=== PATIENT | female | born 1990 | race Caucasian/White ===

== ENCOUNTER 2017-11-13 11:57 | Emergency (ER) | payer OTHER ==
[~2017-11-13] VITALS: Ht 149.9 cm; Wt 79.0 kg
[~2017-11-13 11:57] MED LIST: CITA20TA5 PO
[2017-11-13] MEDS ORDERED: ONDANSETRON ODT 4 MG ONE (12:38)
[2017-11-13] MEDS ORDERED: KETOROLAC 30 MG/1 ML ONE (12:38)
[2017-11-13 12:52] LABS: MICROSCOPIC INDICATED
[2017-11-13 12:53] LABS: CULTURE INDICATED? YES
[2017-11-13 12:53] LABS: BASOPHILS # (AUTO) 0.29 x10^3/uL (0-0.1); BASOPHILS % (AUTO) 2 % (0-1); EOSINOPHILS # (AUTO) 0.29 x10^3/uL (0-0.4); EOSINOPHILS % (AUTO) 2 % (1-7); LYMPHOCYTES % (AUTO) 28 % (22-44); MD NO; MEAN CORPUSCULAR HEMOGLOBIN 29.6 pg (27.0-34.8); MEAN CORPUSCULAR HGB CONC 34.3 g/dL (32.4-35.8); MEAN CORPUSCULAR VOLUME 86.4 fL (80-100); MEAN PLATELET VOLUME 8.4 fL (7.4-10.4); MONOCYTES # (AUTO) 0.66 x10^3/uL (0.2-0.8); MONOCYTES % (AUTO) 4 % (2-9); NEUTROPHILS # (AUTO) 9.89 x10^3/uL (1.8-6.8); NEUTROPHILS % (AUTO) 64 % (42-75); PLATELET COUNT 332 x10^3/uL (130-400); RED BLOOD COUNT 5.03 x10^6/uL (3.82-5.3)
[2017-11-13] MEDS ORDERED: KETOROLAC 30 MG/1 ML IVPush ONE (13:00)
[2017-11-13] MEDS ORDERED: ONDANSETRON ODT 4 MG PO ONE (13:00)
[2017-11-13] MEDS ORDERED: KETOROLAC 30 MG/1 ML IM ONE (13:00)
[2017-11-13] MEDS ORDERED: SODIUM CHLORIDE FLUSH 10ML SYR IVF ONE (13:00)
[2017-11-13 13:04] LABS: ALANINE AMINOTRANSFERASE 21 U/L (12-78); ALBUMIN 3.3 g/dL (3.4-5.0); ANION GAP 8 mmol/L (5-15); CALCIUM 8.3 mg/dL (8.5-10.1); CHLORIDE 114 mmol/L (98-107); CREATININE 0.92 mg/dL (0.55-1.02)
[2017-11-13 13:09] LABS: ALKALINE PHOSPHATASE 93 U/L (45-117); BILIRUBIN,TOTAL 0.2 mg/dL (0.2-1.0); TOTAL PROTEIN 7.5 g/dL (6.4-8.2)
[2017-11-13 16:25] VITALS: BP 136/89
== END 2017-11-13 16:28 | disposition home or self-care (01) ==
LOC: ED 14:46
DX: N20.0 Calculus of kidney (principal); N23 Unspecified renal colic
CPT/HCPCS: 36415; 74176; 80053; 81001; 83690; 84703; 85025; 87086; 96372; 99285; J1885; Q0162